=== PATIENT | male | born 1985 | race Caucasian/White ===

== ENCOUNTER 2018-10-18 09:47 | Outpatient (CLI) | payer BC | END 2018-10-18 09:48 | disposition home or self-care (01) | LOC: CTENTCT 09:47 | PROVIDERS: ATTEND Otolaryngology Plastic Surgery within the Head & Neck | DX: J32.0 Chronic maxillary sinusitis (principal) | CPT/HCPCS: 70486 ==

== ENCOUNTER 2018-12-08 08:21 | Day surgery (SDC) | payer BC ==
[2018-12-07 16:08] VITALS: BMI 24.3
[2018-12-08] MEDS ORDERED: Oxymetazoline HCl 0.05% ( 15 ML ) ONE ×3 (10:52→13:46)
[2018-12-08] MEDS ORDERED: Lidocaine 1% PF 5 ML VIAL ONE (11:45)
[2018-12-08] MEDS ORDERED: PROPOFOL 200 MG/20 ML VIAL ONE (11:45)
[2018-12-08] MEDS ORDERED: Ondansetron PF 4 MG/2 ML Vial ONE (11:45)
[2018-12-08] MEDS ORDERED: Glycopyrrolate 0.2 MG/ML 5 ML SYRINGE ONE (11:45)
[2018-12-08] MEDS ORDERED: Dexamethasone 20 MG/5 ML VIAL ONE (11:45)
[2018-12-08] MEDS ORDERED: Rocuronium Bromide 10 MG/ML (10ML VIAL) ONE (11:45)
[2018-12-08] MEDS ORDERED: Bacitracin Zinc Ointment 30 gm TUBE ONE (12:00)
[2018-12-08] MEDS ORDERED: Lidocaine 1% w/Epinephrine 1:100K 20 ML VIAL ONE (12:00)
[2018-12-08] MEDS ORDERED: methylPREDNISolone Acetate 40 mg/ml Vial ONE (12:01)
[2018-12-08] MEDS ORDERED: Fentanyl 100 MCG/2 ML VIAL ONE ×4 (12:01→13:55)
[2018-12-08] MEDS ORDERED: Meperidine HCl/PF 25 MG/ML VIAL ONE (13:13)
[2018-12-08] MEDS ORDERED: Hydrocodone-Acetamin 15 ML UDCUP ONE (16:13)
--- NOTE | 2018-12-09 12:46 | OP ---
DATE OF PROCEDURE: 12/08/2018 PREOPERATIVE DIAGNOSES: 1. Chronic rhinosinusitis. 2. Nasal septal deviation. 3. Bilateral inferior turbinate hypertrophy. 4. Nasal obstruction. POSTOPERATIVE DIAGNOSES: 1. Chronic rhinosinusitis. 2. Nasal septal deviation. 3. Bilateral inferior turbinate hypertrophy. 4. Nasal obstruction. PROCEDURES: 1. Bilateral endoscopic sinus surgery, total ethmoidectomies. 2. Bilateral endoscopic sinus surgery, maxillary antrostomies. 3. Bilateral endoscopic sinus surgery, frontal sinusotomies. 4. Nasal septoplasty. 5. Bilateral inferior turbinate submucosal resection. ESTIMATED BLOOD LOSS: 20 mL. COMPLICATIONS: None. ANESTHESIA: GETA. DESCRIPTION OF PROCEDURE: Patient was taken to the operating room and placed supine on the table. General endotracheal anesthesia was obtained by the anesthesia staff. Tube was secured in the left lower lip. Patient was then placed in the beach chair position, and Afrin pledgets were placed in the nasal cavity. Injections of 1% lidocaine with 1:100,000 epinephrine were made into the nasal septum as well as the inferior turbinates. Patient was then prepped and draped in standard surgical fashion for nasal surgery. Following this, the Afrin pledgets were removed. A Adria incision was made on the left nasal septum. Submucoperichondrial dissection was performed. The deviated portions of the septum included portions of the cartilage and the bony septum. These isolated areas were removed using 3 cutting rongeurs. There was noted to be a large dorsal and caudal strut, left intact for support of the nose. The mucoperichondrial flaps were then reapproximated using a 4-0 gut stitch. Any straight pieces of cartilage were crushed prior to this and placed between the mucoperichondrial flaps. Following this, the inferior turbinates were then punctured with a submucosal coblation wand, and submucosal coblations were performed of multiple areas of the inferior portion of the anterior inferior turbinate. Please note that the submucosal microdebrider was used to submucosally resect the anterior and inferior portions of the inferior turbinates bilaterally. Following this, a 0 degree endoscope was advanced into the middle meatus. The middle turbinate was identified and was gently medialized using the Sawyer elevator. Following this, the uncinate process was identified and was anteriorly fractured using a ball-ended probe bilaterally. Following this, the uncinate process was removed using a 0 degree microdebrider and up-biting Blakesley forceps. Following this, the maxillary sinus ostia was identified and was gently widened using a very curved microdebrider and straight Blakesley forceps bilaterally. Following this, ethmoidal bulla was identified and was punctured on its medial and inferior aspect with microdebrider and was removed. Following this, the grand lamella was identified and was punctured into the posterior ethmoidal cells using 0 degree microdebrider bilaterally. Working from posterior to anterior, ethmoidal cells were opened using the 0 degree microdebrider and up-biting Blakesley forceps. Following this, a 45-degree endoscope and the 40-degree microdebrider blade was used to further open the frontal recess cells and exposing the frontal sinus ostia bilaterally. Following this, the frontal sinus ostia was widened bilaterally using the 40-degree microdebrider blade bilaterally. Following this, the nasal cavity was irrigated. Mirapex was placed within the middle meatus. Yoder splints were placed and secured. The patient tolerated the procedure well. Job ID: [id number]
== END 2018-12-08 16:55 | disposition home or self-care (01) ==
LOC: SDC 08:21
PROVIDERS: ATTEND Otolaryngology Plastic Surgery within the Head & Neck
PROC: 09SM0ZZ Reposition Nasal Septum, Open Approach (ICD-10-PCS; principal; 2018-12-08)
PROC: 099R8ZZ Drainage of Left Maxillary Sinus, Via Natural or Artificial Opening Endoscopic (ICD-10-PCS; principal; 2018-12-08)
PROC: 09TV8ZZ Resection of Left Ethmoid Sinus, Via Natural or Artificial Opening Endoscopic (ICD-10-PCS; principal; 2018-12-08)
PROC: 09TU8ZZ Resection of Right Ethmoid Sinus, Via Natural or Artificial Opening Endoscopic (ICD-10-PCS; principal; 2018-12-08)
PROC: 099T8ZZ Drainage of Left Frontal Sinus, Via Natural or Artificial Opening Endoscopic (ICD-10-PCS; principal; 2018-12-08)
PROC: 099S8ZZ Drainage of Right Frontal Sinus, Via Natural or Artificial Opening Endoscopic (ICD-10-PCS; principal; 2018-12-08)
PROC: 09TL8ZZ Resection of Nasal Turbinate, Via Natural or Artificial Opening Endoscopic (ICD-10-PCS; principal; 2018-12-08)
PROC: 099Q8ZZ Drainage of Right Maxillary Sinus, Via Natural or Artificial Opening Endoscopic (ICD-10-PCS; principal; 2018-12-08)
DX: J32.4 Chronic pansinusitis (principal); J34.2 Deviated nasal septum; J34.3 Hypertrophy of nasal turbinates; J34.89 Other specified disorders of nose and nasal sinuses; J30.9 Allergic rhinitis, unspecified; Z87.891 Personal history of nicotine dependence; Z79.899 Other long term (current) drug therapy
CPT/HCPCS: J1030; J1100; J2001; J2175; J2405; J2704; J3010

== ENCOUNTER 2019-09-08 17:55 | Inpatient (IN) | payer BC ==
[~2019-09-08 17:55] MED LIST: Iopamidol-370 76% 500 ML 1 ML ONE
[2019-09-08 18:34] LABS: Bacteria/HPF 4+ HPF (None Seen); Bilirubin Negative (Negative); Blood, Urine 3+ (Negative); Clarity Turbid (Clear); Glucose, Urine (Dipstick) Normal (Negative); Leukocyte 500 Leu/uL (Negative); Nitrite 1+ (Negative); Protein, Urine (Dipstick) 30 mg/dL (Neg-Trace); RBC/HPF 21-50 HPF (0-3); Squamous Epithelial None Seen HPF (0-3); Urobilinogen Normal mg/dL (Less than 2); WBC/HPF 21-50 HPF (0-3)
[2019-09-08] MEDS ORDERED: Morphine 4 MG/ML VIAL ONE ×2 (19:24→21:25)
[2019-09-08] MEDS ORDERED: Ondansetron PF 4 MG/2 ML Vial ONE (19:24)
[2019-09-08 19:30] LABS: #Eosinphils 0.1 thou/uL (0.0-0.7); #Lymphocytes 1.5 thou/uL (1.20-3.40); #Monocytes 1.4 thou/uL (0.11-0.59); #Neutrophils 13.9 thou/uL (1.40-6.50); %Basophils 0.1 % (0.0-1.0); %Eosinophils 0.4 % (0.0-10.0); %Lymphocytes 8.7 % (21.0-51.0); %Monocytes 8.3 % (0.0-10.0); %Neutrophils 82.4 % (42.0-75.0); Hemoglobin 16.9 g/dL (14.0-18.0); Mean Corpuscular HGB CONC 34.1 g/dL (32.0-36.0); Mean Corpuscular Hemoglobin 30.5 pg (27.0-31.0); Mean Corpuscular Volume 89.4 fL (78.0-98.0); Mean Platelet Volume 8.5 fL (7.4-10.4); Platelet Count 156 thou/uL (130-400); RBC Distribution Width 11.8 % (11.5-14.5); Red Blood Cell (RBC) Count 5.55 mill/uL (4.70-6.10); White Blood Cell (WBC) Count 16.8 thou/uL (4.8-10.8)
[2019-09-08 19:50] LABS: ALT (SGPT) 47 U/L (8-55); AST (SGOT) 46 U/L (5-34); Albumin 4.4 g/dL (3.5-5.0); Alkaline Phosphatase 95 U/L (40-110); Anion Gap 15 mmol/L (10-20); BUN (Urea Nitrogen) 16 mg/dL (8.9-20.6); Bilirubin, Total 0.6 mg/dL (0.2-1.2); CK (CPK) 595 U/L (30-200); Calc. Creatinine Clearance 0 mL/min (70-130); Calcium 9.3 mg/dL (7.8-10.44); Carbon Dioxide 24 mmol/L (22-29); Chloride 103 mmol/L (98-107); Estimated GFR-MDRD Greater than 90; Globulin 2.8 g/dL (2.4-3.5); Glucose 103 mg/dL (70-105); Lipase 25 U/L (8-78); Potassium 4.2 mmol/L (3.5-5.1); Protein, Total 7.2 g/dL (6.0-8.3); Sodium 138 mmol/L (136-145)
--- NOTE | 2019-09-08 21:07 | CT ---
CT Abdomen Pelvis W Con: 09/08/2019 7:00 PM CLINICAL INFORMATION: Right flank pain COMPARISON: None. TECHNIQUE: Multiple contiguous axial images were obtained and a CT of the abdomen and pelvis with IV contrast. Oral contrast was administered. Coronal and sagittal reformats were performed. FINDINGS: Lower Chest: within normal limits. Abdomen: Liver: within normal limits. Bile Ducts: Normal caliber. Gallbladder: No calcified gallstones. Normal caliber wall. Pancreas: within normal limits. Spleen: within normal limits. Adrenals: within normal limits. Kidneys: within normal limits. Pelvis: Reproductive Organs: No pelvic masses. Ureters: within normal limits. Bladder: within normal limits. Peritoneum: No ascites or free air, no fluid collection. Bowel: Normal caliber. Normal appendix. Mesentery and Retroperitoneum: No enlarged mesenteric or retroperitoneal lymph nodes. Vessels: Normal. Abdominal Wall: within normal limits. Bones: Postsurgical changes are seen in the spine. IMPRESSION: No evidence of acute intraabdominal or pelvic abnormality.
[2019-09-08] MEDS ORDERED: cefTRIAXone\\ROCEPHIN 2 GM VIAL ONE ×2 (21:26→21:27)
[2019-09-08] MEDS ORDERED: Acetaminophen 325 MG TAB PO PRN (23:02)
[2019-09-08] MEDS ORDERED: Ondansetron ODT 4 MG TAB SL PRN (23:02)
[2019-09-08] MEDS ORDERED: Sodium Chloride 0.9% 1,000 ML IV SCH (23:02)
[2019-09-08] MEDS ORDERED: Ondansetron PF 4 MG/2 ML Vial IVP PRN (23:02)
[2019-09-08 23:11] VITALS: BMI 26.9
[2019-09-09] MEDS ORDERED: Morphine 4 MG/ML VIAL SLOW IVP PRN (00:16)
[2019-09-09] MEDS ORDERED: Ondansetron PF 4 MG/2 ML Vial IVP PRN (01:42)
[2019-09-09] MEDS ORDERED: Bisacodyl 5 MG TAB PO PRN (01:42)
[2019-09-09] MEDS ORDERED: Senokot S 8.6-50 MG TAB PO PRN (01:42)
[2019-09-09] MEDS ORDERED: Bisacodyl 10 MG SUPP PR PRN (01:42)
[2019-09-09] MEDS ORDERED: HYDROcodone/Acetaminophen 5/325 mg Tablet PO PRN (01:42)
[2019-09-09] MEDS ORDERED: Acetaminophen 325 MG TAB PO PRN (01:42)
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
[2019-09-09] MEDS: Sodium Chloride 0.9% 1,000 ML IV SCH ×2 (02:00→12:10)
[2019-09-09 07:00] LABS: #Eosinphils 0.1 thou/uL (0.0-0.7); #Lymphocytes 2.2 thou/uL (1.20-3.40); #Monocytes 1.4 thou/uL (0.11-0.59); %Basophils 0.4 % (0.0-1.0); %Eosinophils 0.6 % (0.0-10.0); %Lymphocytes 18.7 % (21.0-51.0); %Monocytes 11.7 % (0.0-10.0); %Neutrophils 68.6 % (42.0-75.0); Hemoglobin 15.6 g/dL (14.0-18.0); Mean Corpuscular HGB CONC 32.9 g/dL (32.0-36.0); Mean Corpuscular Hemoglobin 29.6 pg (27.0-31.0); Mean Platelet Volume 8.7 fL (7.4-10.4); Platelet Count 144 thou/uL (130-400); RBC Distribution Width 11.8 % (11.5-14.5); Red Blood Cell (RBC) Count 5.27 mill/uL (4.70-6.10); White Blood Cell (WBC) Count 11.6 thou/uL (4.8-10.8)
[2019-09-09 07:19] LABS: Anion Gap 10 mmol/L (10-20); BUN (Urea Nitrogen) 9 mg/dL (8.9-20.6); Calc. Creatinine Clearance 153 mL/min (70-130); Calcium 8.2 mg/dL (7.8-10.44); Carbon Dioxide 27 mmol/L (22-29); Chloride 108 mmol/L (98-107); Estimated GFR-MDRD Greater than 90; Glucose 92 mg/dL (70-105); Potassium 4.1 mmol/L (3.5-5.1); Sodium 141 mmol/L (136-145)
[2019-09-09] MEDS: Enoxaparin Sodium 40 MG/0.4 ML SYRINGE SC SCH (07:50)
[2019-09-10] MEDS: Sodium Chloride 0.9% 1,000 ML IV SCH (04:50)
[2019-09-10 07:17] VITALS: BP 106/62
[2019-09-10] MEDS: Enoxaparin Sodium 40 MG/0.4 ML SYRINGE SC SCH (08:14)
[2019-09-10 11:44] VITALS: TEMP 98.7
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
--- NOTE | 2019-09-12 21:48 | PQF ---
CINTHIA HICKS ERIK [id number] CLINICAL DOCUMENTATION CLARIFICATION FORM: POST DISCHARGE Addendum to original discharge summary date: ____ Late entry note date: __ DATE: 09/12/19 ATTN: Brody Dimas Please exercise your independent, professional judgment in responding to the clarification form. Clinical indicators are provided on the bottom of this form for your review Please check appropriate box(s): [ XX ] UTI due to Self-Catheterization complication [ ] Acute Pyelonephritis [ ] Other diagnosis [ ] Unable to determine In addition, please specify: Present on Admission (POA): [ XX ] Yes [ ] No [ ] Unable to determine For continuity of documentation, please document condition throughout progress notes and discharge summary. Thank You. CLINICAL INDICATORS - SIGNS / SYMPTOMS / LABS ER visit note p2 RLQ and right flank pain ER visit note p2 Vital sign : BP 114/60, Pulse 75, Resp 16 H&P p1 09/08 Dr Enriquez he self caths through day and noted urine cloudy H&P p1 09/08 Dr Enriquez reports fever, chills Laboratory hematology 08/08 WBC 16.8 Laboratory hematology 08/09 WBC 11.6 RISK FACTORS ER visit note p9 Acute SIRS criteria H&P p1 09/08 Dr Enriquez Medical history : L1-L5 spinal cord injury with bladder incontinence and partial paraplegia H&P p3 09/08 Dr Enriquez Pyelonephritis of right kidney TREATMENTS: JAN 10 IV Levaquin H&P p3 09/08 - Maintenance of IVF H&P p4 09/08 - order for self-cath supplies to be available to patient PRN (This form is maintained as a part of the permanent medical record) 2014 [employer]. All Rights Reserved [email or web address] [not provided] MTDD
--- NOTE | 2019-09-12 21:50 | PQF ---
CINTHIA HICKS ERIK [id number] CLINICAL DOCUMENTATION CLARIFICATION FORM: POST DISCHARGE Addendum to original discharge summary date: ____ Late entry note date: __ DATE: 09/12/19 ATTN: Brody Dimas Please exercise your independent, professional judgment in responding to the clarification form. Clinical indicators are provided on the bottom of this form for your review Please check appropriate box(es): [ XX ] Sepsis due to UTI [ ] Sepsis due to Self-Catheterization complication [ ] Severe sepsis with acute organ dysfunction of: (Examples: respiratory failure, encephalopathy, acute kidney failure, other) [ ] Septic Shock [ ] Localized infection without sepsis [ ] Other diagnosis [ ] Unable to determine In addition, please specify: Present on Admission (POA): [ XX ] Yes [ ] No [ ] Unable to determine For continuity of documentation, please document condition throughout progress notes and discharge summary. Thank You. CLINICAL INDICATORS - SIGNS / SYMPTOMS / LABS ER visit note p2 RLQ and right flank pain ER visit note p2 Vital sign : BP 114/60, Pulse 75, Resp 16 H&P p1 09/08 Dr Enriquez he self caths through day and noted urine cloudy H&P p1 09/08 Dr Enriquez reports fever, chills Laboratory hematology 08/08 WBC 16.8 Laboratory hematology 08/09 WBC 11.6 RISK FACTORS ER visit note p9 Acute SIRS criteria H&P p1 09/08 Dr Enirquez Medical history : L1-L5 spinal cord injury with bladder incontinence and partial paraplegia H&P p3 09/08 Dr Enriquez Pyelonephritis of right kidney TREATMENTS: JAN 10 IV Levaquin H&P p3 09/08 - Maintenance of IVF H&P p4 09/08 - order for self-cath supplies to be available to patient PRN (This form is maintained as a part of the permanent medical record) 2014 [employer] All Rights Reserved [email or web address] [not provided] MTDD
== END 2019-09-10 11:51 | disposition home or self-care (01) | DRG 698 ==
LOC: ERS 17:55 → T4-A 23:02
PROVIDERS: ADMIT Internal Medicine; ATTEND Internal Medicine
DX: T83.518A Infection and inflammatory reaction due to other urinary catheter, initial encounter (principal); A41.9 Sepsis, unspecified organism; N12 Tubulo-interstitial nephritis, not specified as acute or chronic; G82.22 Paraplegia, incomplete; N31.9 Neuromuscular dysfunction of bladder, unspecified; N39.498 Other specified urinary incontinence; Y84.6 Urinary catheterization as the cause of abnormal reaction of the patient, or of later complication, without mention of misadventure at the time of the procedure; X58.XXXS Exposure to other specified factors, sequela; S34.121 Incomplete lesion of L1 level of lumbar spinal cord; Z87.440 Personal history of urinary (tract) infections; Z98.1 Arthrodesis status
CPT/HCPCS: 36415; 74177; 80048; 80053; 81003; 81015; 82550; 83605; 83690; 85025; 87040; 87077; 87086; 87186; 96361; 96365; 96367; 96375; 96376; J0696; J1650; J1956; J2270; J2405; Q9967

== ENCOUNTER 2021-10-08 12:58 | Outpatient (CLI) | payer BC | END 2021-10-08 12:59 | disposition home or self-care (01) | LOC: TBSIIMAG 12:58 | PROVIDERS: ATTEND Surgery | DX: S34.109A Unspecified injury to unspecified level of lumbar spinal cord, initial encounter (principal); M54.16 Radiculopathy, lumbar region; M48.061 Spinal stenosis, lumbar region without neurogenic claudication; N32.89 Other specified disorders of bladder | CPT/HCPCS: 72110; 72148 ==

== ENCOUNTER 2021-11-29 07:12 | Day surgery (SDC) | payer BC ==
[2021-11-29 08:14] VITALS: BP 119/80; TEMP 98.1
[2021-11-29 08:15] VITALS: BMI 25.2
== END 2021-11-29 10:25 | disposition home or self-care (01) ==
LOC: RAD 07:12 → EDSTATUS 08:00 → RAD 10:25
PROVIDERS: ATTEND Surgery
PROC: B02B1ZZ Computerized Tomography (CT Scan) of Spinal Cord using Low Osmolar Contrast (ICD-10-PCS; principal; 2021-11-29)
DX: S34.109A Unspecified injury to unspecified level of lumbar spinal cord, initial encounter (principal); M51.34 Other intervertebral disc degeneration, thoracic region; M48.04 Spinal stenosis, thoracic region; M43.16 Spondylolisthesis, lumbar region; M48.061 Spinal stenosis, lumbar region without neurogenic claudication; M47.816 Spondylosis without myelopathy or radiculopathy, lumbar region; M47.817 Spondylosis without myelopathy or radiculopathy, lumbosacral region; M43.17 Spondylolisthesis, lumbosacral region; Z98.1 Arthrodesis status; X58.XXXA Exposure to other specified factors, initial encounter
CPT/HCPCS: 72129; 72132; 77002